=== PATIENT | female | born 1995 | race Caucasian/White ===

== ENCOUNTER 2016-06-17 12:29 | Emergency (ER) | payer OTHER ==
[~2016-06-17] VITALS: Ht 165.1 cm; Wt 77.3 kg
[~2016-06-17 12:29] MED LIST: OXYC-360 PO
[2016-06-17 12:31] VITALS: BP 120/73; PULSE 85; RESP 20; TEMP 97.7; O2SAT 99
--- NOTE | 2016-06-17 12:56 | PD ---
Physical Exam Date Seen by Provider: Jun 17, 2016 Time Seen by Provider: 12:56 Narrative 21 y/o female here with several day Hx of generalized lower abdominal pain. Patient has felt hot and cold, but no specific Fever. has nausea, but no vomiting or diarrhea. Denies Urinary symptoms and mild vaginal discharge. Denies . Has Implanted BC. Denies cough, chest pain or SOB. V/S Stable Awaiting Med Bed Data Data Last Documented VS Vital Signs Date Time Temp Pulse Resp B/P Pulse Ox O2 Delivery O2 Flow Rate FiO2 06/17/16 12:31 97.7 85 20 120/73 99 Room Air [facility] Medical Record Reviewed: Yes Supervised Visit with STEVEN: Yes Condition: Stable Rohit Ellington Jun 17, 2016 12:56
--- NOTE | 2016-06-17 13:02 | PD ---
HPI Chief Complaint: Abdominal Pain Time Seen by Provider: 13:02 Travel History International Travel<30 days: No Contact w/Intl Traveler<30days: No Traveled to known affect area: No History of Present Illness HPI Patient is a 21-year-old female presents emergency department superpubic abdominal pain. Patient states that she's had an Implanon in for 2-1/2 years she thinks this is causing her abdominal pain. She does not have any arm pain. Patient states that this is been going on for the past 2-3 days and gradually worsening. Endorses some mild nausea without vomiting. Denies any vaginal beating vaginal discharge diarrhea or constipation. Patient has a secondary complaint of a knot on the right side of her neck she states at the present for several months. She has not followed up with a primary care provider. Denies any fever. [facility] Past Medical History ?: Not LMP: 05/29/2016 Social History Tobacco Use: No Substance Use: No Allergies-Medications (Allergen,Severity, Reaction): Coded Allergies: No Known Allergies (Unverified , 06/17/16) Reported Meds & Prescriptions Reported Meds & Active Scripts Active No Active Prescriptions or Reported Medications Review of Systems Except as stated in HPI: all other systems reviewed are Neg Physical Exam Narrative GENERAL: Well-developed well-nourished no apparent distress SKIN: Focused skin assessment warm/dry. HEAD: Atraumatic. Normocephalic. EYES: Pupils equal and round. No scleral icterus. No injection or drainage. ENT: No nasal bleeding or discharge. Mucous membranes pink and moist. NECK: Trachea midline. No JVD. CARDIOVASCULAR: Regular rate and rhythm. No murmur appreciated. RESPIRATORY: No accessory muscle use. Clear to auscultation. Breath sounds equal bilaterally. GASTROINTESTINAL: Abdomen soft, non-tender, nondistended. Hepatic and splenic margins not palpable. No rebound no percussive tenderness. GENITOURINARY: Recommended to patient and she declined. MUSCULOSKELETAL: No obvious deformities. No clubbing. No cyanosis. No edema. NEUROLOGICAL: Awake and alert. No obvious cranial nerve deficits. Motor grossly within normal limits. Normal speech. PSYCHIATRIC: Appropriate mood and affect; insight and judgment normal. Data Data Last Documented VS Vital Signs Date Time Temp Pulse Resp B/P Pulse Ox O2 Delivery O2 Flow Rate FiO2 06/17/16 12:31 97.7 85 20 120/73 99 Room Air Orders Urinalysis - C+S If Indicated (06/17/16 13:02) Ed Urine Pregnancytest Poc (06/17/16 13:02) Basic Metabolic Panel (Bmp) (06/17/16 13:29) Complete Blood Count With Diff (06/17/16 13:29) Iv Access Insert/Monitor (06/17/16 13:29) Ecg Monitoring (06/17/16:) Oximetry (06/17/16:29) Sodium Chloride 0.9% Flush (Ns Flush) (06/17/16 13:30) Wet Prep Profile (06/17/16:29) Gc And Chlamydia Pcr (06/17/16:29) Acetaminophen (Tylenol) (06/17/16 13:30) Ondansetron Odt (Zofran Odt) (06/17/16 13:30) Labs Laboratory Tests Test 06/17/16: Urine Color YELLOW Urine Turbidity HAZY Urine pH 5.5 Urine Specific [place] 1.019 Urine Protein NEG mg/dL Urine Glucose (UA) NEG mg/dL Urine Ketones NEG mg/dL Urine Occult Blood NEG Urine Nitrite NEG Urine Bilirubin NEG Urine Urobilinogen LESS THAN 2.0 MG/DL Urine Leukocyte Esterase LARGE Urine RBC 2 /hpf Urine WBC 7 /hpf Urine Squamous Epithelial 15 /hpf Cells Urine Bacteria FEW /hpf Microscopic Urinalysis Comment CULT NOT INDICATED MDM Medical Decision Making Medical Screen Exam Complete: Yes Emergency Medical Condition: Yes Differential Diagnosis Pelvic pain, , encounter for nexplanon removal, urinary tract infection , ovarian torsion seems less likely. Acute appendicitis seems highly unlikely. Narrative Course Patient roomed in the emergency department, she appears well and in no apparent distress. Abdomen exam is benign. Discussed with the patient that I have no explanation for her pelvic pain at this time and recommended a pelvic exam as well as basic labs. I discussed with her that I'm not qualified to remove her Nexplanon and this is unlikely to be causing her symptoms. Patient is initially agreeable however after finding out her test is negative and her urine test is not show urinary tract infection she requested be discharged to follow-up with the health department. At this point her abdomen is benign but I told her that I cannot give her assurances that her pelvic pain is not for more serious cause. She verbalized understanding and wanted to go home. Diagnosis Primary Impression: Pelvic pain Referrals: Dillon Fonseca MD Scripts No Active Prescriptions or Reported Meds Disposition: 01 DISCHARGE HOME Condition: Pernell Bletran MD Jun 17, 2016 13:02
[2016-06-17] MEDS ORDERED: ONDANSETRON ODT 4 MG TAB PO ONE (13:30)
[2016-06-17] MEDS ORDERED: SODIUM CHLORIDE 0.9% FLUSH 10 ML FLUSH IV FLUSH PRN (13:30)
[2016-06-17] MEDS ORDERED: ACETAMINOPHEN 325 MG TAB PO ONE (13:30)
[2016-06-17 13:33] LABS: BACTERIA, URINE FEW /hpf; BLOOD, URINE NEG (NEG); COMMENT (UR) CULT NOT INDICATED; CULTURE IF INDICATED CULT NOT INDICATED; GLUCOSE,URINE NEG (NEG); KETONE, URINE NEG (NEG); NITRITE,URINE NEG (NEG); PH, URINE 5.5 (5.0-8.5); SQUAMOUS EPITHELIAL CELL URINE 15 /hpf (0-5); URINE COLOR YELLOW (YELLW/STRAW)
== END 2016-06-17 14:37 | disposition home or self-care (01) ==
LOC: NEPD 12:29
DX: R10.2 Pelvic and perineal pain (principal)
CPT/HCPCS: 81001; 84703; 99284

== ENCOUNTER 2016-09-30 14:29 | Emergency (ER) | payer MEDICAID ==
[2016-09-30 14:31] VITALS: BP 125/64; PULSE 87; RESP 15; TEMP 98.2; O2SAT 98
--- NOTE | 2016-09-30 14:53 | PD ---
Physical Exam Date Seen by Provider: Sep 30, 2016 Time Seen by Provider: 14:50 Data Data Last Documented VS Vital Signs Date Time Temp Pulse Resp B/P Pulse Ox O2 Delivery O2 Flow Rate FiO2 09/30/16 14:31 98.2 87 15 125/64 98 MDM Supervised Visit with STEVEN: No Differential Diagnosis 21 YO F with 1 week history of 8/10 generalized abdominal pain. Intermittent at first, now constant. ++Nausea and vomiting. Endorses constipation. Denies vaginal bleeding or discharge. LMP "August 10" Vitals reviewed. Patient seen in triage, awaiting bed placement. Scripts No Active Prescriptions or Reported Meds Moan Trivedi Sep 30, 2016 14:53
[2016-09-30 16:36] LABS: BLOOD, URINE NEG (NEG); COMMENT (UR) CULTURE INDICATED; CULTURE IF INDICATED CULTURE INDICATED; GLUCOSE,URINE NEG (NEG); KETONE, URINE NEG (NEG); MUCUS URINE FEW /lpf (OCC); NITRITE,URINE NEG (NEG); SQUAMOUS EPITHELIAL CELL URINE 16 /hpf (0-5); URINE COLOR YELLOW (YELLW/STRAW)
[2016-09-30] MEDS ORDERED: MACR100C2 PO (16:48)
[2016-09-30] MEDS ORDERED: MIRA3350 PO (16:48)
--- NOTE | 2016-09-30 16:50 | PD ---
HPI Chief Complaint: GI Complaint Time Seen by Provider: 15:06 Travel History International Travel<30 days: No Contact w/Intl Traveler<30days: No Traveled to known affect area: No History of Present Illness HPI The 21 year-old woman presents to the emergency department complaining of abdominal pains ongoing for the past month or so. She about 8 weeks . She is 3 para 2. She has no urinary symptoms. No vaginal discharge or vaginal bleeding. She has had some intermittent vomiting. She has established with an OB but has not senior OB doctor yet. She has no past medical history. No other complaints. History Past Medical History Medical History: Denies Significant Hx : 3 Para: 3 Social History Alcohol Use: No Tobacco Use: No Allergies-Medications (Allergen,Severity, Reaction): Coded Allergies: Amoxicillin (Verified Allergy, Unknown, 09/30/16) Reported Meds & Prescriptions Reported Meds & Active Scripts Active No Active Prescriptions or Reported Medications Review of Systems Except as stated in HPI: all other systems reviewed are Neg Physical Exam Narrative GENERAL: Well-appearing 21 year-old woman, no acute distress. SKIN: Focused skin assessment warm/dry. HEAD: Atraumatic. Normocephalic. EYES: Pupils equal and round. No scleral icterus. No injection or drainage. ENT: No nasal bleeding or discharge. Mucous membranes pink and moist. NECK: Trachea midline. No JVD. CARDIOVASCULAR: Regular rate and rhythm. No murmur appreciated. RESPIRATORY: No accessory muscle use. Clear to auscultation. Breath sounds equal bilaterally. GASTROINTESTINAL: Abdomen soft, non-tender, nondistended. Hepatic and splenic margins not palpable. MUSCULOSKELETAL: No obvious deformities. Data Data Last Documented VS Vital Signs Date Time Temp Pulse Resp B/P Pulse Ox O2 Delivery O2 Flow Rate FiO2 09/30/16 15:13 18 09/30/16 14:31 98.2 87 125/64 98 Orders Ed Poc Ultrasound (09/30/16 ) Urinalysis - C+S If Indicated (09/30/16 15:20) Urine Culture (09/30/16 15:51) Labs Laboratory Tests Test 09/30/16 15:51 Urine Color YELLOW Urine Turbidity HAZY Urine pH 7.0 Urine Specific [place] 1.025 Urine Protein TRACE mg/dL Urine Glucose (UA) NEG mg/dL Urine Ketones NEG mg/dL Urine Occult Blood NEG Urine Nitrite NEG Urine Bilirubin NEG Urine Urobilinogen 4.0 MG/DL Urine Leukocyte Esterase LARGE Urine RBC 1 /hpf Urine WBC 12 /hpf Urine Squamous Epithelial 16 /hpf Cells Urine Mucus FEW /lpf Microscopic Urinalysis Comment CULTURE INDICATED MDM Medical Decision Making Medical Screen Exam Complete: Yes Emergency Medical Condition: Yes Interpretation(s) UA was some pyuria Differential Diagnosis Constipation, UTI, , ectopic, other Narrative Course Medical decision making 21 year-old woman presents emergency Department with some abdominal pain ongoing for the past several weeks or so. She looks well. Bedside ultrasound reassuring. She has had constipation. Is a little bit of pyuria. We'll treat for UTI and constipation. Outpatient follow-up. Procedures Procedure Narrative Point of care ultrasound: Focus transabdominal ultrasounds performed by me at the bedside for the purpose of evaluating for intrauterine . Cheung and she was improving she was identified. Size is consistent with approximately 7 weeks 0 days. Heart rate 141. Diagnosis Primary Impression: Pelvic pain Additional Impression: Intrauterine Additional Instructions: Take antibiotics as prescribed. Take MiraLAX as prescribed. Increase fiber. Drink plenty of fluids. Return to the emergency department for any worsening abdominal pain, bleeding, cramping, or any other new or worsening symptoms. Follow-up with your OB doctor as planned. Med/Other Pt SpecificInfo: Prescription(s) given Scripts Nitrofurantoin Monohydrate Macrocrystals (Macrobid)100 Mg [id number] Mg PO BID 5 Days Ref 0 Prov:Remi Collins MD 09/30/16 Polyethylene Glycol 3350 Powder (Miralax Powder)17 Gm Powd17 Gm PO DAILY #1 CAN Ref 0 Mix and dissolve one measuring cap-ful (17 grams) in water or juice. Prov:Remi Collins MD 09/30/16 Disposition: 01 DISCHARGE HOME Condition: Stable Remi Collins MD Sep 30, 2016 16:50
[2016-09-30] MEDS ORDERED: DOXY10TA PO (16:56)
== END 2016-09-30 17:17 | disposition home or self-care (01) ==
LOC: NEPE 14:29
DX: O26.891 Other specified pregnancy related conditions, first trimester (principal); R10.2 Pelvic and perineal pain; K59.00 Constipation, unspecified; Z3A.01 Less than 8 weeks gestation of pregnancy
CPT/HCPCS: 81001; 87086; 99284